=== PATIENT | male | born 1955 | race Caucasian/White ===

== ENCOUNTER 2018-05-04 12:08 | Inpatient (IN) | payer MEDICAID ==
[2018-05-04 14:48] LABS: ADD MAN DIFF? NO
[2018-05-04 14:51] LABS: BASOPHILS % 0.3 % (0.0-2.0); EOSINOPHILS # 0.1 10^3/ul (0.0-0.5); EOSINOPHILS % 0.7 % (0.0-7.0); HEMATOCRIT 38.3 % (42.0-52.0); HEMOGLOBIN 11.9 g/dl (14.0-18.0); LYMPHOCYTES # 1.6 10^3/ul (0.8-2.9); LYMPHOCYTES % 13.3 % (15.0-51.0); MEAN CORPUSCULAR HEMOGLOBIN 22.8 pg (29.0-33.0); MEAN CORPUSCULAR HGB CONC 31.1 g/dl (32.0-37.0); MEAN CORPUSCULAR VOLUME 73.4 fl (82.0-101.0); MEAN PLATELET VOLUME 9.4 fl (7.4-10.4); MONOCYTE # 0.8 10^3/ul (0.3-0.9); MONOCYTES % 6.5 % (0.0-11.0); NEUTROPHIL # 9.6 10^3/ul (1.6-7.5); PLATELET COUNT 352 10^3/UL (140-415); RED BLOOD COUNT 5.22 10^6/ul (4.70-6.10); RED CELL DISTRIBUTION WIDTH 15.9 % (11.5-14.5)
[2018-05-04 14:51] LABS: WHITE BLOOD COUNT 12.2 10^3/ul (4.8-10.8)
[2018-05-04 15:00] LABS: INR 0.93; PROTIME 12.6 Sec (11.9-14.9)
[2018-05-04 15:01] LABS: PARTIAL THROMBOPLASTIN TIME 27.7 Sec (23.0-35.0)
[2018-05-04 15:02] LABS: ANION GAP 14 (5-13); BLOOD UREA NITROGEN 18 mg/dl (7-20); CALCIUM 9.4 mg/dl (8.4-10.2); CARBON DIOXIDE 24 mmol/L (21-31); CHLORIDE 103 mmol/L (97-110); Estimated GFR > 60 mL/min (>60); GLUCOSE 149 mg/dl (70-220); POTASSIUM 4.6 mmol/L (3.5-5.1); SODIUM 141 mmol/L (135-144)
[2018-05-04 15:54] LABS: ERYTHROCYTE SEDIMENTATION RATE 33 mm/Hr (0-20)
[2018-05-04] MEDS ORDERED: VANCOMYCIN IV PER PHARMACY XX (18:30)
[2018-05-04] MEDS ORDERED: NACL 0.9% 3 ML SYG IV (18:30)
[2018-05-04] MEDS ORDERED: morphine 2 MG INJ IV (18:30)
[2018-05-04] MEDS ORDERED: ZOLPIDEM 5 MG TAB PO (18:30)
[2018-05-04 19:40] LABS: C-REACTIVE PROTEIN 14.3 mg/dl (0.0-0.9)
[2018-05-04] MEDS ORDERED: GLUCOSE GEL 15 GRAM TUBE BUCCAL (20:00)
[2018-05-04] MEDS ORDERED: GLUCOSE GEL 15 GRAM TUBE PO ×2 (20:00)
[2018-05-04] MEDS ORDERED: GLUCAGON 1 MG INJ IM (20:00)
[2018-05-04] MEDS ORDERED: DEXTROSE 50% 50 ML SYRINGE IV ×2 (20:00)
[2018-05-04] MEDS: INSULIN ASPART [NOVOLOG] 3 ML PEN SC (21:00)
[2018-05-04] MEDS: VANCOMYCIN HCL 1.5 GM in SOD CHLORIDE 0.9% 250 ML IVPB (22:56)
[2018-05-05] MEDS: ACCU-CHEK XX (02:00)
[2018-05-05 05:23] LABS: ADD MAN DIFF? NO
[2018-05-05 05:27] LABS: BASOPHILS % 0.4 % (0.0-2.0); EOSINOPHILS # 0.2 10^3/ul (0.0-0.5); EOSINOPHILS % 1.8 % (0.0-7.0); HEMATOCRIT 36.9 % (42.0-52.0); HEMOGLOBIN 11.3 g/dl (14.0-18.0); LYMPHOCYTES # 1.3 10^3/ul (0.8-2.9); LYMPHOCYTES % 16.1 % (15.0-51.0); MEAN CORPUSCULAR HEMOGLOBIN 22.6 pg (29.0-33.0); MEAN CORPUSCULAR HGB CONC 30.6 g/dl (32.0-37.0); MEAN CORPUSCULAR VOLUME 73.9 fl (82.0-101.0); MONOCYTE # 0.6 10^3/ul (0.3-0.9); MONOCYTES % 7.1 % (0.0-11.0); NEUTROPHIL # 6.1 10^3/ul (1.6-7.5); NEUTROPHILS % 74.4 % (39.0-77.0); PLATELET COUNT 343 10^3/UL (140-415); RED BLOOD COUNT 4.99 10^6/ul (4.70-6.10); RED CELL DISTRIBUTION WIDTH 15.9 % (11.5-14.5)
[2018-05-05 05:27] LABS: WHITE BLOOD COUNT 8.2 10^3/ul (4.8-10.8)
[2018-05-05 05:35] LABS: HEMOGLOBIN A1C 6.6 % (0-5.9)
[2018-05-05] MEDS: PIPER-TAZO 3.375 GM IV (PMX) 100 ML IVPB ×4 (05:35→17:40)
[2018-05-05 05:44] LABS: ANION GAP 11 (5-13); BLOOD UREA NITROGEN 15 mg/dl (7-20); CALCIUM 9.2 mg/dl (8.4-10.2); CARBON DIOXIDE 24 mmol/L (21-31); CHLORIDE 106 mmol/L (97-110); CREATININE 0.96 mg/dl (0.61-1.24); Estimated GFR > 60 mL/min (>60); GLUCOSE 137 mg/dl (70-220); PHOSPHORUS 3.3 mg/dl (2.5-4.9); POTASSIUM 4.8 mmol/L (3.5-5.1); SODIUM 141 mmol/L (135-144)
[2018-05-05] MEDS: INSULIN ASPART [NOVOLOG] 3 ML PEN SC ×4 (08:00→20:41)
[2018-05-05] MEDS: VANCOMYCIN 1 GM 250 ML IVPB ×2 (08:18→20:31)
[2018-05-05] MEDS: SODIUM HYPOCHLORITE (1/40) 1 APPLIC BTL IRR (08:18)
[2018-05-05] MEDS: ACETAMINOPHEN 325 MG TAB PO (13:00)
[2018-05-05 16:42] LABS: C-REACTIVE PROTEIN 6.8 mg/dl (0.0-0.9)
[2018-05-05 17:31] LABS: ERYTHROCYTE SEDIMENTATION RATE 33 mm/Hr (0-20)
[2018-05-05] MEDS: HYDROCODONE/APAP (5/325) TAB PO (20:31)
[2018-05-06] MEDS: PIPER-TAZO 3.375 GM IV (PMX) 100 ML IVPB ×4 (00:22→19:51)
[2018-05-06] MEDS: INSULIN ASPART [NOVOLOG] 3 ML PEN SC ×3 (00:58→09:00)
[2018-05-06] MEDS: ACCU-CHEK XX (02:00)
[2018-05-06] MEDS: HYDROCODONE/APAP (5/325) TAB PO ×2 (02:05→20:10)
[2018-05-06 09:17] LABS: VANCOMYCIN,TROUGH 8.8 ug/ml (10.0-20.0)
[2018-05-06] MEDS: SODIUM HYPOCHLORITE (1/40) 1 APPLIC BTL IRR (09:40)
[2018-05-06] MEDS: VANCOMYCIN 1 GM 250 ML IVPB (09:40)
[2018-05-06] MEDS ORDERED: IODIXANOL LOCM 100 ML BTL (12:08)
[2018-05-06] MEDS ORDERED: LIDOCAINE 1% (MDV) 20 ML INJ (12:08)
[2018-05-06] MEDS ORDERED: HEPARIN 1000 UNITS/NS (A-LINE) 1,000 ML (12:08)
[2018-05-06] MEDS ORDERED: MIDAZOLAM 1 MG/ML 2 ML INJ (12:09)
[2018-05-06] MEDS ORDERED: FENTAnyl 50 MCG/ML VIAL (12:09)
[2018-05-06] MEDS: Insulin NOVOLOG SS MILD Algorithm (SS with meals and bedtime) SC ×2 (17:30→21:00)
[2018-05-06] MEDS ORDERED: INSULIN ASPART [NOVOLOG] 3 ML PEN SC (17:35)
[2018-05-06] MEDS: VANCOMYCIN HCL 1.5 GM in SOD CHLORIDE 0.9% 250 ML IVPB (21:09)
[2018-05-07] MEDS: PIPER-TAZO 3.375 GM IV (PMX) 100 ML IVPB ×5 (00:08→23:56)
[2018-05-07] MEDS: INSULIN ASPART [NOVOLOG] 3 ML PEN SC ×6 (01:12→20:33)
[2018-05-07] MEDS: morphine SULFATE/PF (2 MG/2 ML) SYG IV (03:11)
[2018-05-07 06:52] LABS: CREATININE 1.18 mg/dl (0.61-1.24)
[2018-05-07 06:52] LABS: BLOOD UREA NITROGEN 20 mg/dl (7-20)
[2018-05-07] MEDS: SODIUM HYPOCHLORITE (1/40) 1 APPLIC BTL IRR (08:59)
[2018-05-07] MEDS: VANCOMYCIN HCL 1.5 GM in SOD CHLORIDE 0.9% 250 ML IVPB ×2 (08:59→20:59)
[2018-05-07] MEDS: HYDROCODONE/APAP (5/325) TAB PO (14:30)
[2018-05-07] MEDS: ACETAMINOPHEN 325 MG TAB PO (20:33)
[2018-05-08] MEDS: INSULIN ASPART [NOVOLOG] 3 ML PEN SC ×4 (01:17→13:00)
[2018-05-08] MEDS: ACETAMINOPHEN 1000MG/100ML IV 100 ML IVPB (03:24)
[2018-05-08] MEDS: PIPER-TAZO 3.375 GM IV (PMX) 100 ML IVPB ×4 (05:19→23:44)
[2018-05-08 08:58] LABS: VANCOMYCIN,TROUGH 14.1 ug/ml (10.0-20.0)
[2018-05-08] MEDS: SODIUM HYPOCHLORITE (1/40) 1 APPLIC BTL IRR (09:00)
[2018-05-08] MEDS: VANCOMYCIN HCL 1.5 GM in SOD CHLORIDE 0.9% 250 ML IVPB ×2 (09:55→20:41)
[2018-05-08] MEDS: HYDROCODONE/APAP (5/325) TAB PO ×3 (15:47→23:47)
[2018-05-08] MEDS ORDERED: INSULIN ASPART [NOVOLOG] 3 ML PEN SC (17:35)
[2018-05-08] MEDS: Insulin NOVOLOG SS MILD Algorithm (SS with meals and bedtime) SC ×2 (17:45→20:41)
[2018-05-08] MEDS: GUAIFENESIN 20 MG/ML 5ML CUP PO (22:18)
[2018-05-09 05:13] LABS: ADD MAN DIFF? NO
[2018-05-09 05:18] LABS: BASOPHILS % 0.3 % (0.0-2.0); EOSINOPHILS # 0.2 10^3/ul (0.0-0.5); EOSINOPHILS % 2.3 % (0.0-7.0); HEMATOCRIT 40.7 % (42.0-52.0); HEMOGLOBIN 12.6 g/dl (14.0-18.0); LYMPHOCYTES # 1.2 10^3/ul (0.8-2.9); LYMPHOCYTES % 16.1 % (15.0-51.0); MEAN CORPUSCULAR HEMOGLOBIN 22.5 pg (29.0-33.0); MEAN CORPUSCULAR VOLUME 72.8 fl (82.0-101.0); MEAN PLATELET VOLUME 9.5 fl (7.4-10.4); MONOCYTE # 0.6 10^3/ul (0.3-0.9); MONOCYTES % 7.7 % (0.0-11.0); NEUTROPHIL # 5.4 10^3/ul (1.6-7.5); NEUTROPHILS % 73.2 % (39.0-77.0); PLATELET COUNT 307 10^3/UL (140-415); RED BLOOD COUNT 5.59 10^6/ul (4.70-6.10); RED CELL DISTRIBUTION WIDTH 15.9 % (11.5-14.5)
[2018-05-09 05:18] LABS: WHITE BLOOD COUNT 7.4 10^3/ul (4.8-10.8)
[2018-05-09] MEDS: PIPER-TAZO 3.375 GM IV (PMX) 100 ML IVPB ×2 (05:30→12:58)
[2018-05-09 05:41] LABS: ANION GAP 10 (5-13); BLOOD UREA NITROGEN 20 mg/dl (7-20); CALCIUM 8.8 mg/dl (8.4-10.2); CARBON DIOXIDE 24 mmol/L (21-31); CHLORIDE 101 mmol/L (97-110); CREATININE 1.05 mg/dl (0.61-1.24); Estimated GFR > 60 mL/min (>60); GLUCOSE 130 mg/dl (70-220); POTASSIUM 4.6 mmol/L (3.5-5.1); SODIUM 135 mmol/L (135-144)
[2018-05-09] MEDS: Insulin NOVOLOG SS MILD Algorithm (SS with meals and bedtime) SC ×4 (08:35→21:00)
[2018-05-09] MEDS: SODIUM HYPOCHLORITE (1/40) 1 APPLIC BTL IRR (08:35)
[2018-05-09] MEDS: VANCOMYCIN HCL 1.5 GM in SOD CHLORIDE 0.9% 250 ML IVPB ×2 (09:08→21:18)
[2018-05-09] MEDS: TRIMETHOPRIM/SULFAMETHOX (DS) TAB PO ×2 (14:30→21:18)
[2018-05-10] MEDS: ACETAMINOPHEN 325 MG TAB PO (03:21)
[2018-05-10] MEDS: Insulin NOVOLOG SS MILD Algorithm (SS with meals and bedtime) SC ×4 (07:30→21:00)
[2018-05-10] MEDS: VANCOMYCIN HCL 1.5 GM in SOD CHLORIDE 0.9% 250 ML IVPB ×2 (08:05→21:01)
[2018-05-10] MEDS: SODIUM HYPOCHLORITE (1/40) 1 APPLIC BTL IRR (08:06)
[2018-05-10] MEDS: TRIMETHOPRIM/SULFAMETHOX (DS) TAB PO ×2 (08:06→21:00)
[2018-05-11] MEDS: Insulin NOVOLOG SS MILD Algorithm (SS with meals and bedtime) SC ×4 (07:30→20:42)
[2018-05-11] MEDS: TRIMETHOPRIM/SULFAMETHOX (DS) TAB PO ×2 (08:08→20:42)
[2018-05-11] MEDS: SODIUM HYPOCHLORITE (1/40) 1 APPLIC BTL IRR (08:08)
[2018-05-11 08:52] LABS: CREATININE 1.21 mg/dl (0.61-1.24)
[2018-05-11 08:52] LABS: BLOOD UREA NITROGEN 24 mg/dl (7-20)
[2018-05-11 08:58] LABS: VANCOMYCIN,TROUGH 16.3 ug/ml (10.0-20.0)
[2018-05-11] MEDS: VANCOMYCIN HCL 1.5 GM in SOD CHLORIDE 0.9% 250 ML IVPB ×2 (09:20→21:10)
[2018-05-12] MEDS: INSULIN ASPART [NOVOLOG] 3 ML PEN SC ×6 (01:59→21:00)
[2018-05-12 07:46] LABS: BLOOD UREA NITROGEN 28 mg/dl (7-20)
[2018-05-12] MEDS: VANCOMYCIN HCL 1.5 GM in SOD CHLORIDE 0.9% 250 ML IVPB (08:53)
[2018-05-12] MEDS: SODIUM HYPOCHLORITE (1/40) 1 APPLIC BTL IRR (08:53)
[2018-05-12] MEDS: TRIMETHOPRIM/SULFAMETHOX (DS) TAB PO (08:53)
[2018-05-12] MEDS: DEXTROSE 5%-0.45% NACL 1,000 ML IV (10:57)
[2018-05-12] MEDS: CEFTRIAXONE 1 GM/50 ML (PMX) 50 ML IVPB (12:21)
[2018-05-12] MEDS ORDERED: ETOMIDATE 20 MG INJ (16:34)
[2018-05-12] MEDS ORDERED: LIDOCAINE 1% (MDV) 20 ML INJ (16:34)
[2018-05-12] MEDS: LIDOCAINE 1% (MPF) 30 ML INJ (17:01)
[2018-05-12] MEDS ORDERED: HYDROmorphONE 1 MG/5 ML IV SYRINGE IV ×3 (17:45→18:00)
[2018-05-12] MEDS: ONDANSETRON 4 MG INJ IV (17:49)
[2018-05-12] MEDS: HYDROmorphONE 1 MG/5 ML IV SYRINGE IV (17:49)
[2018-05-12] MEDS ORDERED: ONDANSETRON 4 MG INJ IV (18:00)
[2018-05-12] MEDS: DOCUSATE SODIUM 100 MG CAP PO (23:00)
[2018-05-12] MEDS: HYDROCODONE/APAP (5/325) TAB PO (23:00)
[2018-05-13] MEDS: ACCU-CHEK XX ×2 (02:00)
[2018-05-13 06:04] LABS: ADD MAN DIFF? NO; BASOPHILS % 0.2 % (0.0-2.0); EOSINOPHILS # 0.2 10^3/ul (0.0-0.5); HEMATOCRIT 39.2 % (42.0-52.0); HEMOGLOBIN 12.1 g/dl (14.0-18.0); LYMPHOCYTES # 1.3 10^3/ul (0.8-2.9); LYMPHOCYTES % 12.3 % (15.0-51.0); MEAN CORPUSCULAR HEMOGLOBIN 22.4 pg (29.0-33.0); MEAN CORPUSCULAR HGB CONC 30.9 g/dl (32.0-37.0); MEAN CORPUSCULAR VOLUME 72.6 fl (82.0-101.0); MEAN PLATELET VOLUME 9.6 fl (7.4-10.4); MONOCYTE # 0.6 10^3/ul (0.3-0.9); MONOCYTES % 5.4 % (0.0-11.0); NEUTROPHIL # 8.3 10^3/ul (1.6-7.5); NEUTROPHILS % 79.7 % (39.0-77.0); PLATELET COUNT 318 10^3/UL (140-415); RED CELL DISTRIBUTION WIDTH 15.4 % (11.5-14.5)
[2018-05-13 06:04] LABS: WHITE BLOOD COUNT 10.4 10^3/ul (4.8-10.8)
[2018-05-13] MEDS: LEVOFLOXACIN 500 MG TAB PO (06:29)
[2018-05-13] MEDS: HYDROCODONE/APAP (5/325) TAB PO (06:29)
[2018-05-13 06:37] LABS: ALBUMIN 3.7 g/dl (3.3-4.9); ANION GAP 11 (5-13); BLOOD UREA NITROGEN 26 mg/dl (7-20); CALCIUM 9.2 mg/dl (8.4-10.2); CARBON DIOXIDE 23 mmol/L (21-31); CHLORIDE 104 mmol/L (97-110); CREATININE 1.19 mg/dl (0.61-1.24); GLUCOSE 132 mg/dl (70-220); PHOSPHORUS 3.9 mg/dl (2.5-4.9); SODIUM 138 mmol/L (135-144)
[2018-05-13] MEDS: INSULIN ASPART [NOVOLOG] 3 ML PEN SC ×4 (08:00→20:27)
[2018-05-13] MEDS: SODIUM HYPOCHLORITE (1/40) 1 APPLIC BTL IRR (08:07)
[2018-05-13] MEDS: CEFTRIAXONE 1 GM/50 ML (PMX) 50 ML IVPB (12:00)
[2018-05-14] MEDS: ACCU-CHEK XX (02:00)
[2018-05-14 05:50] LABS: ADD MAN DIFF? NO
[2018-05-14] MEDS: LEVOFLOXACIN 500 MG TAB PO (05:52)
[2018-05-14 06:14] LABS: BASOPHILS % 0.3 % (0.0-2.0); EOSINOPHILS # 0.3 10^3/ul (0.0-0.5); EOSINOPHILS % 2.8 % (0.0-7.0); HEMATOCRIT 40.4 % (42.0-52.0); HEMOGLOBIN 12.7 g/dl (14.0-18.0); LYMPHOCYTES # 1.8 10^3/ul (0.8-2.9); LYMPHOCYTES % 19.6 % (15.0-51.0); MEAN CORPUSCULAR HEMOGLOBIN 22.7 pg (29.0-33.0); MEAN CORPUSCULAR HGB CONC 31.4 g/dl (32.0-37.0); MEAN CORPUSCULAR VOLUME 72.1 fl (82.0-101.0); MEAN PLATELET VOLUME 9.7 fl (7.4-10.4); MONOCYTE # 0.6 10^3/ul (0.3-0.9); MONOCYTES % 7.1 % (0.0-11.0); NEUTROPHIL # 6.3 10^3/ul (1.6-7.5); NEUTROPHILS % 69.6 % (39.0-77.0); PLATELET COUNT 348 10^3/UL (140-415); RED CELL DISTRIBUTION WIDTH 15.6 % (11.5-14.5)
[2018-05-14 06:39] LABS: ALBUMIN 3.9 g/dl (3.3-4.9); ANION GAP 12 (5-13); BLOOD UREA NITROGEN 26 mg/dl (7-20); CALCIUM 9.6 mg/dl (8.4-10.2); CARBON DIOXIDE 24 mmol/L (21-31); CHLORIDE 103 mmol/L (97-110); CREATININE 1.17 mg/dl (0.61-1.24); GLUCOSE 162 mg/dl (70-220); MAGNESIUM 2.1 mg/dl (1.7-2.5); PHOSPHORUS 3.6 mg/dl (2.5-4.9); SODIUM 139 mmol/L (135-144)
[2018-05-14 06:50] LABS: POTASSIUM 4.8 mmol/L (3.5-5.1)
[2018-05-14] MEDS: INSULIN ASPART [NOVOLOG] 3 ML PEN SC ×4 (08:00→20:23)
[2018-05-14] MEDS: SODIUM HYPOCHLORITE (1/40) 1 APPLIC BTL IRR (08:02)
[2018-05-14] MEDS: CEFTRIAXONE 1 GM/50 ML (PMX) 50 ML IVPB (12:28)
[2018-05-14] MEDS: morphine LIQ (10 MG/5 ML) CUP PO (23:22)
[2018-05-15] MEDS: ACCU-CHEK XX (02:00)
[2018-05-15 06:15] LABS: ALBUMIN 3.7 g/dl (3.3-4.9); ANION GAP 13 (5-13); BLOOD UREA NITROGEN 27 mg/dl (7-20); CALCIUM 9.8 mg/dl (8.4-10.2); CARBON DIOXIDE 24 mmol/L (21-31); CHLORIDE 103 mmol/L (97-110); CREATININE 1.04 mg/dl (0.61-1.24); GLUCOSE 153 mg/dl (70-220); PHOSPHORUS 3.8 mg/dl (2.5-4.9); POTASSIUM 4.5 mmol/L (3.5-5.1); SODIUM 140 mmol/L (135-144)
[2018-05-15] MEDS: INSULIN ASPART [NOVOLOG] 3 ML PEN SC ×3 (07:52→17:38)
[2018-05-15] MEDS: morphine LIQ (10 MG/5 ML) CUP PO ×2 (07:58→14:57)
[2018-05-15] MEDS: SODIUM HYPOCHLORITE (1/40) 1 APPLIC BTL IRR (09:09)
== END 2018-05-15 20:55 | disposition home health service (06) | DRG 239 ==
LOC: FTE 12:08 → PP2 15:59
PROVIDERS: Internal Medicine
PROC: 0Y6M0ZC Detachment at Right Foot, Partial 3rd Ray, Open Approach (ICD-10-PCS; principal; 2018-05-06 12:00)
PROC: B410YZZ Fluoroscopy of Abdominal Aorta using Other Contrast (ICD-10-PCS; 2018-05-06 12:00)
PROC: B41FYZZ Fluoroscopy of Right Lower Extremity Arteries using Other Contrast (ICD-10-PCS; 2018-05-06 12:00)
DX: E11.52 Type 2 diabetes mellitus with diabetic peripheral angiopathy with gangrene (principal); N17.0 Acute kidney failure with tubular necrosis; L03.115 Cellulitis of right lower limb; L02.611 Cutaneous abscess of right foot; R65.10 Systemic inflammatory response syndrome (SIRS) of non-infectious origin without acute organ dysfunction; M86.171 Other acute osteomyelitis, right ankle and foot; E11.69 Type 2 diabetes mellitus with other specified complication; E11.42 Type 2 diabetes mellitus with diabetic polyneuropathy; I10 Essential (primary) hypertension; E78.5 Hyperlipidemia, unspecified; F17.210 Nicotine dependence, cigarettes, uncomplicated; B95.1 Streptococcus, group B, as the cause of diseases classified elsewhere; Z89.411 Acquired absence of right great toe; L97.519 Non-pressure chronic ulcer of other part of right foot with unspecified severity
CPT/HCPCS: 36246; 36415; 71045; 73630; 73718; 75630; 75716; 80048; 80069; 80202; 82565; 82962; 83036; 83735; 84100; 84520; 85025; 85610; 85651; 85730; 86140; 87070; 87075; 87102; 88304; 88311; 90686; 93005; 93922; 97162; 99285-25

== ENCOUNTER 2018-05-26 10:17 | Emergency (ER) | payer MEDICAID ==
[2018-05-26] MEDS: HYDROCODONE/APAP (10/325) TAB PO (11:18)
== END 2018-05-26 13:08 | disposition home or self-care (01) ==
LOC: E/R 10:17
DX: M79.671 Pain in right foot (principal); E11.9 Type 2 diabetes mellitus without complications; Z48.01 Encounter for change or removal of surgical wound dressing; Z79.84 Long term (current) use of oral hypoglycemic drugs
CPT/HCPCS: 73630; 99283-25

== ENCOUNTER 2018-06-02 11:24 | Inpatient (IN) | payer MEDICAID ==
[2018-06-02 12:23] LABS: ADD MAN DIFF? NO
[2018-06-02 12:28] LABS: WHITE BLOOD COUNT 8.1 10^3/ul (4.8-10.8)
[2018-06-02 12:28] LABS: BASOPHILS % 0.5 % (0.0-2.0); EOSINOPHILS # 0.3 10^3/ul (0.0-0.5); EOSINOPHILS % 3.1 % (0.0-7.0); HEMATOCRIT 37.2 % (42.0-52.0); HEMOGLOBIN 11.4 g/dl (14.0-18.0); LYMPHOCYTES # 1.7 10^3/ul (0.8-2.9); LYMPHOCYTES % 20.7 % (15.0-51.0); MEAN CORPUSCULAR HEMOGLOBIN 22.4 pg (29.0-33.0); MEAN CORPUSCULAR HGB CONC 30.6 g/dl (32.0-37.0); MEAN CORPUSCULAR VOLUME 72.9 fl (82.0-101.0); MEAN PLATELET VOLUME 10.1 fl (7.4-10.4); MONOCYTE # 0.6 10^3/ul (0.3-0.9); MONOCYTES % 7.9 % (0.0-11.0); NEUTROPHIL # 5.3 10^3/ul (1.6-7.5); NEUTROPHILS % 66.1 % (39.0-77.0); PLATELET COUNT 294 10^3/UL (140-415); RED CELL DISTRIBUTION WIDTH 15.3 % (11.5-14.5)
[2018-06-02] MEDS: PIPER-TAZO 3.375 GM IV (PMX) 100 ML IVPB (12:41)
[2018-06-02 12:45] LABS: INR 0.81; PROTIME 11.3 Sec (11.9-14.9); PT RATIO 0.9
[2018-06-02 12:48] LABS: ANION GAP 11 (5-13); BLOOD UREA NITROGEN 28 mg/dl (7-20); CARBON DIOXIDE 25 mmol/L (21-31); CHLORIDE 102 mmol/L (97-110); CREATININE 1.08 mg/dl (0.61-1.24); GLUCOSE 342 mg/dl (70-220); POTASSIUM 4.9 mmol/L (3.5-5.1); SODIUM 138 mmol/L (135-144)
[2018-06-02 12:49] LABS: C-REACTIVE PROTEIN 1.4 mg/dl (0.0-0.9); CALCIUM 9.4 mg/dl (8.4-10.2); Estimated GFR > 60 mL/min (>60)
[2018-06-02] MEDS: VANCOMYCIN 1 GM (PMX) 250 ML IVPB (13:12)
[2018-06-02] MEDS ORDERED: GLUCOSE GEL 15 GRAM TUBE BUCCAL (15:00)
[2018-06-02] MEDS ORDERED: GLUCAGON 1 MG INJ IM (15:00)
[2018-06-02] MEDS ORDERED: DEXTROSE 50% 50 ML SYRINGE IV ×2 (15:00)
[2018-06-02] MEDS ORDERED: GLUCOSE GEL 15 GRAM TUBE PO ×2 (15:00)
[2018-06-02] MEDS: INSULIN ASPART [NOVOLOG] 3 ML PEN SC ×3 (17:37→20:16)
[2018-06-02] MEDS: HEPARIN 5,000 UNIT/1 ML VIAL SC (19:44)
[2018-06-02] MEDS: INSULIN GLARGINE [LANTus] (100 UNITS/ML) SYG SC (20:19)
[2018-06-02] MEDS: HYDROCODONE/APAP (5/325) TAB PO (20:37)
[2018-06-02] MEDS: NACL 0.9% 3 ML SYG IV (20:39)
[2018-06-02] MEDS: SOD CHLORIDE 0.45% 1,000 ML IV (23:50)
[2018-06-03 05:59] LABS: ADD MAN DIFF? NO
[2018-06-03 06:03] LABS: BASOPHIL # 0.1 10^3/ul (0.0-0.1); BASOPHILS % 0.7 % (0.0-2.0); EOSINOPHILS # 0.3 10^3/ul (0.0-0.5); EOSINOPHILS % 4.2 % (0.0-7.0); HEMATOCRIT 35.9 % (42.0-52.0); LYMPHOCYTES # 1.5 10^3/ul (0.8-2.9); LYMPHOCYTES % 20.5 % (15.0-51.0); MEAN CORPUSCULAR HEMOGLOBIN 22.2 pg (29.0-33.0); MEAN CORPUSCULAR HGB CONC 30.6 g/dl (32.0-37.0); MEAN CORPUSCULAR VOLUME 72.4 fl (82.0-101.0); MONOCYTE # 0.5 10^3/ul (0.3-0.9); MONOCYTES % 6.6 % (0.0-11.0); NEUTROPHIL # 4.8 10^3/ul (1.6-7.5); NEUTROPHILS % 67.2 % (39.0-77.0); PLATELET COUNT 291 10^3/UL (140-415); RED BLOOD COUNT 4.96 10^6/ul (4.70-6.10); RED CELL DISTRIBUTION WIDTH 15.8 % (11.5-14.5)
[2018-06-03 06:03] LABS: WHITE BLOOD COUNT 7.1 10^3/ul (4.8-10.8)
[2018-06-03 07:04] LABS: ALANINE AMINOTRANSFERASE 28 IU/L (13-69); ALBUMIN 3.3 g/dl (3.3-4.9); ALBUMIN/GLOBULIN RATIO 0.97; ALKALINE PHOSPHATASE 98 IU/L (42-121); ANION GAP 6 (5-13); ASPARTATE AMINO TRANSFERASE 23 IU/L (15-46); BLOOD UREA NITROGEN 25 mg/dl (7-20); CALCIUM 9.2 mg/dl (8.4-10.2); CARBON DIOXIDE 29 mmol/L (21-31); CHLORIDE 102 mmol/L (97-110); CREATININE 1.04 mg/dl (0.61-1.24); Estimated GFR > 60 mL/min (>60); GLUCOSE 160 mg/dl (70-220); POTASSIUM 4.6 mmol/L (3.5-5.1); SODIUM 137 mmol/L (135-144); TOTAL PROTEIN 6.7 g/dl (6.1-8.1)
[2018-06-03 07:27] LABS: HEMOGLOBIN A1C 5.7 % (0-5.9)
[2018-06-03] MEDS ORDERED: FENTAnyl 50 MCG/ML VIAL (07:39)
[2018-06-03] MEDS ORDERED: MIDAZOLAM 1 MG/ML 2 ML INJ (07:40)
[2018-06-03] MEDS: INSULIN ASPART [NOVOLOG] 3 ML PEN SC ×7 (08:00→20:08)
[2018-06-03] MEDS: POLYMYXIN/BACITRACIN 1L IRRIG (08:02)
[2018-06-03] MEDS ORDERED: CEFAZOLIN 1 GM INJ (08:19)
[2018-06-03] MEDS ORDERED: ONDANSETRON 4 MG INJ (08:19)
[2018-06-03] MEDS ORDERED: LIDOCAINE 2% (SDV) 5 ML INJ (08:19)
[2018-06-03] MEDS ORDERED: ETOMIDATE 20 MG INJ (08:19)
[2018-06-03] MEDS ORDERED: LABETALOL HCL 20MG INJ IV (08:30)
[2018-06-03] MEDS ORDERED: METOCLOPRAMIDE 10 MG INJ IV (08:30)
[2018-06-03] MEDS ORDERED: ONDANSETRON 4 MG INJ IV (08:30)
[2018-06-03] MEDS ORDERED: FENTAnyl 50 MCG/ML VIAL IV (08:30)
[2018-06-03] MEDS ORDERED: DIPHENHYDRAMINE 50 MG INJ IV (08:30)
[2018-06-03] MEDS ORDERED: MEPERIDINE 25 MG INJ IV (08:30)
[2018-06-03] MEDS ORDERED: HYDROmorphONE 1 MG/5 ML IV SYRINGE IV ×2 (08:30)
[2018-06-03] MEDS ORDERED: hydrALAzine 20 MG INJ IV (08:30)
[2018-06-03] MEDS ORDERED: hydrALAzine 20 MG INJ (08:48)
[2018-06-03] MEDS: HEPARIN 5,000 UNIT/1 ML VIAL SC ×2 (09:34→20:13)
[2018-06-03] MEDS: HYDROCODONE/APAP (5/325) TAB PO ×2 (10:49→21:36)
[2018-06-03] MEDS: SOD CHLORIDE 0.45% 1,000 ML IV ×2 (11:04→19:28)
[2018-06-03] MEDS: CEFTRIAXONE 2 GM/50 ML (PMX) 50 ML IVPB (14:16)
[2018-06-03] MEDS: TRIMETHOPRIM/SULFAMETHOXAZOLE 15 ML in DEXTROSE 5% 500 ML IVPB ×2 (15:05→21:36)
[2018-06-03] MEDS: INSULIN GLARGINE [LANTus] (100 UNITS/ML) SYG SC (20:13)
[2018-06-04] MEDS: TRIMETHOPRIM/SULFAMETHOXAZOLE 15 ML in DEXTROSE 5% 500 ML IVPB ×3 (05:32→22:18)
[2018-06-04 06:34] LABS: BLOOD UREA NITROGEN 21 mg/dl (7-20)
[2018-06-04 06:34] LABS: CREATININE 1.16 mg/dl (0.61-1.24)
[2018-06-04] MEDS: HEPARIN 5,000 UNIT/1 ML VIAL SC ×2 (08:07→20:37)
[2018-06-04] MEDS: INSULIN ASPART [NOVOLOG] 3 ML PEN SC ×7 (08:07→20:44)
[2018-06-04] MEDS: LIDOCAINE 1% (MPF) 5 ML VIAL SC ×2 (12:00→12:30)
[2018-06-04] MEDS: CEFTRIAXONE 2 GM/50 ML (PMX) 50 ML IVPB (14:17)
[2018-06-04] MEDS: SOD CHLORIDE 0.45% 1,000 ML IV ×2 (15:30→23:44)
[2018-06-04] MEDS: HYDROCODONE/APAP (5/325) TAB PO (20:38)
[2018-06-04] MEDS: INSULIN GLARGINE [LANTus] (100 UNITS/ML) SYG SC (20:44)
[2018-06-05] MEDS: TRIMETHOPRIM/SULFAMETHOXAZOLE 15 ML in DEXTROSE 5% 500 ML IVPB (06:13)
[2018-06-05 06:21] LABS: ADD MAN DIFF? NO
[2018-06-05 06:25] LABS: BASOPHILS % 0.6 % (0.0-2.0); EOSINOPHILS # 0.2 10^3/ul (0.0-0.5); EOSINOPHILS % 3.5 % (0.0-7.0); HEMATOCRIT 38.1 % (42.0-52.0); HEMOGLOBIN 11.9 g/dl (14.0-18.0); LYMPHOCYTES # 1.8 10^3/ul (0.8-2.9); LYMPHOCYTES % 27.8 % (15.0-51.0); MEAN CORPUSCULAR HEMOGLOBIN 22.5 pg (29.0-33.0); MEAN CORPUSCULAR HGB CONC 31.2 g/dl (32.0-37.0); MEAN PLATELET VOLUME 9.9 fl (7.4-10.4); MONOCYTE # 0.5 10^3/ul (0.3-0.9); MONOCYTES % 8.3 % (0.0-11.0); NEUTROPHIL # 3.9 10^3/ul (1.6-7.5); PLATELET COUNT 300 10^3/UL (140-415); RED BLOOD COUNT 5.29 10^6/ul (4.70-6.10)
[2018-06-05 06:25] LABS: WHITE BLOOD COUNT 6.5 10^3/ul (4.8-10.8)
[2018-06-05 06:58] LABS: INR 0.89; PROTIME 12.1 Sec (11.9-14.9); PT RATIO 0.9
[2018-06-05 07:01] LABS: ALANINE AMINOTRANSFERASE 20 IU/L (13-69); ALBUMIN 3.6 g/dl (3.3-4.9); ALBUMIN/GLOBULIN RATIO 0.97; ALKALINE PHOSPHATASE 109 IU/L (42-121); ANION GAP 8 (5-13); ASPARTATE AMINO TRANSFERASE 25 IU/L (15-46); BLOOD UREA NITROGEN 20 mg/dl (7-20); CALCIUM 9.6 mg/dl (8.4-10.2); CARBON DIOXIDE 25 mmol/L (21-31); CHLORIDE 102 mmol/L (97-110); Estimated GFR 56 mL/min (>60); GLUCOSE 157 mg/dl (70-220); SODIUM 135 mmol/L (135-144); TOTAL PROTEIN 7.3 g/dl (6.1-8.1)
[2018-06-05 07:20] LABS: PARTIAL THROMBOPLASTIN TIME 27.4 Sec (23.0-35.0)
[2018-06-05] MEDS: INSULIN ASPART [NOVOLOG] 3 ML PEN SC ×4 (08:15→13:04)
[2018-06-05] MEDS: HEPARIN 5,000 UNIT/1 ML VIAL SC (08:16)
[2018-06-05] MEDS: SOD CHLORIDE 0.45% 1,000 ML IV (11:30)
[2018-06-05] MEDS: CEFTRIAXONE 2 GM/50 ML (PMX) 50 ML IVPB (13:03)
== END 2018-06-05 16:30 | disposition home health service (06) | DRG 629 ==
LOC: 2NE 14:27 → E/R 11:24 → 2NE 14:27
PROC: 0QBN0ZZ Excision of Right Metatarsal, Open Approach (ICD-10-PCS; principal; 2018-06-03 07:30)
PROC: 0YQM0ZZ Repair Right Foot, Open Approach (ICD-10-PCS; 2018-06-03 07:30)
PROC: 0LBV0ZZ Excision of Right Foot Tendon, Open Approach (ICD-10-PCS; 2018-06-03 07:30)
PROC: 02HV33Z Insertion of Infusion Device into Superior Vena Cava, Percutaneous Approach (ICD-10-PCS; 2018-06-03 07:31)
DX: E11.69 Type 2 diabetes mellitus with other specified complication (principal); L03.115 Cellulitis of right lower limb; M86.9 Osteomyelitis, unspecified; E11.621 Type 2 diabetes mellitus with foot ulcer; E11.42 Type 2 diabetes mellitus with diabetic polyneuropathy; L97.519 Non-pressure chronic ulcer of other part of right foot with unspecified severity; E11.65 Type 2 diabetes mellitus with hyperglycemia; E11.51 Type 2 diabetes mellitus with diabetic peripheral angiopathy without gangrene; E78.5 Hyperlipidemia, unspecified; Z89.411 Acquired absence of right great toe; Z89.421 Acquired absence of other right toe(s); Z91.14 Patient's other noncompliance with medication regimen
CPT/HCPCS: 36415; 36569; 71045; 73718; 76937; 80048; 80053; 82565; 82962; 83036; 83735; 84520; 85025; 85610; 85651; 85730; 86140; 87040; 87070; 88304; 88311; 99285-25

== ENCOUNTER 2018-06-08 10:32 | Emergency (ER) | payer MEDICAID ==
[2018-06-08] MEDS: ENOXAPARIN 80 MG/0.8 ML SYG SC (13:11)
== END 2018-06-08 14:53 | disposition home or self-care (01) ==
LOC: E/R 10:32
DX: I82.611 Acute embolism and thrombosis of superficial veins of right upper extremity (principal)
CPT/HCPCS: 93971; 96372; 99285-25

== ENCOUNTER 2018-06-22 09:08 | Emergency (ER) | payer MEDICAID | END 2018-06-22 10:01 | disposition home or self-care (01) | LOC: E/R 09:08 | DX: Z45.2 Encounter for adjustment and management of vascular access device (principal); E11.9 Type 2 diabetes mellitus without complications | CPT/HCPCS: 99282; Z7502 ==

== ENCOUNTER 2018-12-23 10:51 | Inpatient (IN) | payer MEDICAID ==
[2018-12-23 12:40] LABS: ADD MAN DIFF? NO
[2018-12-23 12:41] LABS: BASOPHILS % 0.6 % (0.0-2.0); EOSINOPHILS # 0.1 10^3/ul (0.0-0.5); EOSINOPHILS % 2.2 % (0.0-7.0); HEMATOCRIT 35.9 % (42.0-52.0); HEMOGLOBIN 11.2 g/dl (14.0-18.0); LYMPHOCYTES # 1.8 10^3/ul (0.8-2.9); LYMPHOCYTES % 32.5 % (15.0-51.0); MEAN CORPUSCULAR HGB CONC 31.2 g/dl (32.0-37.0); MEAN CORPUSCULAR VOLUME 73.7 fl (82.0-101.0); MEAN PLATELET VOLUME 9.8 fl (7.4-10.4); MONOCYTE # 0.3 10^3/ul (0.3-0.9); MONOCYTES % 4.8 % (0.0-11.0); NEUTROPHIL # 3.2 10^3/ul (1.6-7.5); NEUTROPHILS % 59.5 % (39.0-77.0); PLATELET COUNT 202 10^3/UL (140-415); RED BLOOD COUNT 4.87 10^6/ul (4.70-6.10); RED CELL DISTRIBUTION WIDTH 16.2 % (11.5-14.5)
[2018-12-23 12:41] LABS: WHITE BLOOD COUNT 5.4 10^3/ul (4.8-10.8)
[2018-12-23] MEDS: SOD CHLORIDE 0.9% IV (12:49)
[2018-12-23 13:04] LABS: ANION GAP 8 (5-13); BLOOD UREA NITROGEN 10 mg/dl (7-20); CALCIUM 8.4 mg/dl (8.4-10.2); CARBON DIOXIDE 25 mmol/L (21-31); CHLORIDE 107 mmol/L (97-110); CREATININE 1.06 mg/dl (0.61-1.24); Estimated GFR > 60 mL/min (>60); GLUCOSE 116 mg/dl (70-220); MAGNESIUM 2.1 mg/dl (1.7-2.5); PHOSPHORUS 3.1 mg/dl (2.5-4.9); POTASSIUM 3.9 mmol/L (3.5-5.1); SODIUM 140 mmol/L (135-144)
[2018-12-23 13:20] LABS: INR 0.93; PROTIME 12.6 Sec (11.9-14.9)
[2018-12-23] MEDS: CEFEPIME 2GM/50 ML (PMX) 50 ML IVPB (13:53)
[2018-12-23] MEDS: IBUPROFEN 800 MG TAB PO (13:53)
[2018-12-23] MEDS ORDERED: ACETAMINOPHEN 325 MG TAB PO (14:00)
[2018-12-23] MEDS ORDERED: ONDANSETRON 4 MG INJ IV ×2 (14:00→15:30)
[2018-12-23] MEDS: APIXABAN 5 MG TABLET PO ×2 (14:04→20:50)
[2018-12-23 14:15] LABS: C-REACTIVE PROTEIN 0.5 mg/dl (0.0-0.9)
[2018-12-23] MEDS: VANCOMYCIN 1 GM (PMX) 250 ML IVPB (14:23)
[2018-12-23 14:54] LABS: ERYTHROCYTE SEDIMENTATION RATE 5 mm/Hr (0-20)
[2018-12-23] MEDS ORDERED: GLUCAGON 1 MG INJ IM (15:30)
[2018-12-23] MEDS ORDERED: DEXTROSE 50% 50 ML SYRINGE IV ×2 (15:30)
[2018-12-23] MEDS ORDERED: GLUCOSE GEL 15 GRAM TUBE PO ×2 (15:30)
[2018-12-23] MEDS ORDERED: NACL 0.9% 3 ML SYG IV (15:30)
[2018-12-23] MEDS ORDERED: GLUCOSE GEL 15 GRAM TUBE BUCCAL (15:30)
[2018-12-23] MEDS ORDERED: VANCOMYCIN IV PER PHARMACY XX (16:00)
[2018-12-23 16:28] LABS: HEMOGLOBIN A1C 7.4 % (0-5.9)
[2018-12-23] MEDS: VANCOMYCIN 750 MG (PMX) 250 ML IVPB (17:18)
[2018-12-23] MEDS: HYDROCODONE/APAP (5/325) TAB PO (17:20)
[2018-12-23] MEDS: INSULIN ASPART [NOVOLOG] 3 ML PEN SC ×2 (17:37→20:45)
[2018-12-23] MEDS: CEFEPIME 1GM/50 ML (PMX) 50 ML IVPB (20:49)
[2018-12-23] MEDS: ATORVASTATIN 20 MG TAB PO (20:49)
[2018-12-23] MEDS: hydrALAzine 20 MG INJ IV (20:51)
[2018-12-23] MEDS: ACETAMINOPHEN 325 MG TAB PO (20:56)
[2018-12-24] MEDS: VANCOMYCIN 1.5 GM/NS 250 ML 250 ML IVPB ×2 (05:44→17:46)
[2018-12-24] MEDS: HYDROCODONE/APAP (5/325) TAB PO ×2 (06:04→23:03)
[2018-12-24 07:16] LABS: ADD MAN DIFF? NO
[2018-12-24 07:22] LABS: BASOPHILS % 0.6 % (0.0-2.0); EOSINOPHILS # 0.1 10^3/ul (0.0-0.5); HEMATOCRIT 44.9 % (42.0-52.0); HEMOGLOBIN 13.4 g/dl (14.0-18.0); LYMPHOCYTES # 1.2 10^3/ul (0.8-2.9); LYMPHOCYTES % 16.4 % (15.0-51.0); MEAN CORPUSCULAR HEMOGLOBIN 22.5 pg (29.0-33.0); MEAN CORPUSCULAR HGB CONC 29.8 g/dl (32.0-37.0); MEAN CORPUSCULAR VOLUME 75.3 fl (82.0-101.0); MEAN PLATELET VOLUME 10.4 fl (7.4-10.4); MONOCYTE # 0.5 10^3/ul (0.3-0.9); MONOCYTES % 7.5 % (0.0-11.0); NEUTROPHIL # 5.1 10^3/ul (1.6-7.5); NEUTROPHILS % 73.2 % (39.0-77.0); PLATELET COUNT 234 10^3/UL (140-415); RED BLOOD COUNT 5.96 10^6/ul (4.70-6.10); RED CELL DISTRIBUTION WIDTH 17.8 % (11.5-14.5)
[2018-12-24 07:39] LABS: PHOSPHORUS 2.9 mg/dl (2.5-4.9)
[2018-12-24 07:39] LABS: CHOL/HDL RATIO 2.9 RATIO; CHOLESTEROL 169 mg/dl (100-200); HDL CHOLESTEROL 57 mg/dl (30-78); LDL CHOLESTEROL,CALCULATED 85 mg/dl; TRIGLYCERIDES 135 mg/dl (0-149)
[2018-12-24] MEDS: INSULIN ASPART [NOVOLOG] 3 ML PEN SC ×4 (07:55→20:24)
[2018-12-24] MEDS: CEFEPIME 1GM/50 ML (PMX) 50 ML IVPB ×2 (09:11→21:34)
[2018-12-24] MEDS: APIXABAN 5 MG TABLET PO ×2 (09:11→20:21)
[2018-12-24 12:28] LABS: ANION GAP 5 (5-13); BLOOD UREA NITROGEN 14 mg/dl (7-20); CALCIUM 9.1 mg/dl (8.4-10.2); CARBON DIOXIDE 27 mmol/L (21-31); CHLORIDE 103 mmol/L (97-110); CREATININE 0.95 mg/dl (0.61-1.24); Estimated GFR > 60 mL/min (>60); GLUCOSE 142 mg/dl (70-220); POTASSIUM 4.2 mmol/L (3.5-5.1); SODIUM 135 mmol/L (135-144)
[2018-12-24] MEDS: NEOMYC/POLYMYX/BACIT 30 GM OINT TOP (16:09)
[2018-12-24] MEDS: INSULIN GLARGINE [LANTus] (100 UNITS/ML) SYG SC (20:20)
[2018-12-24] MEDS: ATORVASTATIN 20 MG TAB PO (20:21)
[2018-12-25] MEDS: VANCOMYCIN 1.5 GM/NS 250 ML 250 ML IVPB ×2 (05:39→18:25)
[2018-12-25 06:04] LABS: ADD MAN DIFF? NO
[2018-12-25 06:05] LABS: BASOPHILS % 0.4 % (0.0-2.0); EOSINOPHILS # 0.2 10^3/ul (0.0-0.5); HEMATOCRIT 41.4 % (42.0-52.0); HEMOGLOBIN 12.7 g/dl (14.0-18.0); LYMPHOCYTES # 1.2 10^3/ul (0.8-2.9); LYMPHOCYTES % 21.1 % (15.0-51.0); MEAN CORPUSCULAR HGB CONC 30.7 g/dl (32.0-37.0); MEAN PLATELET VOLUME 10.1 fl (7.4-10.4); MONOCYTE # 0.5 10^3/ul (0.3-0.9); NEUTROPHIL # 3.8 10^3/ul (1.6-7.5); NEUTROPHILS % 67.3 % (39.0-77.0); PLATELET COUNT 207 10^3/UL (140-415); RED BLOOD COUNT 5.52 10^6/ul (4.70-6.10); RED CELL DISTRIBUTION WIDTH 15.9 % (11.5-14.5)
[2018-12-25 06:05] LABS: WHITE BLOOD COUNT 5.7 10^3/ul (4.8-10.8)
[2018-12-25 06:33] LABS: MAGNESIUM 1.9 mg/dl (1.7-2.5)
[2018-12-25 06:33] LABS: PHOSPHORUS 3.8 mg/dl (2.5-4.9)
[2018-12-25 06:40] LABS: ANION GAP 6 (5-13); BLOOD UREA NITROGEN 13 mg/dl (7-20); CALCIUM 9.4 mg/dl (8.4-10.2); CARBON DIOXIDE 29 mmol/L (21-31); CHLORIDE 102 mmol/L (97-110); CREATININE 1.07 mg/dl (0.61-1.24); Estimated GFR > 60 mL/min (>60); GLUCOSE 124 mg/dl (70-220); POTASSIUM 4.1 mmol/L (3.5-5.1); SODIUM 137 mmol/L (135-144)
[2018-12-25] MEDS: INSULIN ASPART [NOVOLOG] 3 ML PEN SC ×4 (08:00→21:00)
[2018-12-25] MEDS: APIXABAN 5 MG TABLET PO ×2 (08:23→21:36)
[2018-12-25] MEDS: CHOLECALCIFEROL 2,000 UNIT CAP PO (08:23)
[2018-12-25] MEDS: LISINOPRIL 5 MG TAB PO (08:23)
[2018-12-25] MEDS: CEFEPIME 1GM/50 ML (PMX) 50 ML IVPB ×2 (08:30→21:35)
[2018-12-25] MEDS: NEOMYC/POLYMYX/BACIT 30 GM OINT TOP (11:21)
[2018-12-25 16:54] LABS: VANCOMYCIN,TROUGH 16.3 ug/ml (10.0-20.0)
[2018-12-25] MEDS: ATORVASTATIN 20 MG TAB PO (21:36)
[2018-12-25] MEDS: INSULIN GLARGINE [LANTus] (100 UNITS/ML) SYG SC (21:36)
[2018-12-26] MEDS: VANCOMYCIN 1.5 GM/NS 250 ML 250 ML IVPB ×2 (06:03→17:09)
[2018-12-26] MEDS: ACETAMINOPHEN 325 MG TAB PO (06:10)
[2018-12-26 07:16] LABS: ADD MAN DIFF? NO
[2018-12-26 07:23] LABS: BASOPHILS % 0.3 % (0.0-2.0); EOSINOPHILS # 0.2 10^3/ul (0.0-0.5); HEMATOCRIT 42.5 % (42.0-52.0); HEMOGLOBIN 12.9 g/dl (14.0-18.0); LYMPHOCYTES # 1.3 10^3/ul (0.8-2.9); LYMPHOCYTES % 21.4 % (15.0-51.0); MEAN CORPUSCULAR HGB CONC 30.4 g/dl (32.0-37.0); MEAN CORPUSCULAR VOLUME 75.6 fl (82.0-101.0); MEAN PLATELET VOLUME 10.4 fl (7.4-10.4); MONOCYTE # 0.5 10^3/ul (0.3-0.9); PLATELET COUNT 206 10^3/UL (140-415); RED BLOOD COUNT 5.62 10^6/ul (4.70-6.10); RED CELL DISTRIBUTION WIDTH 16.2 % (11.5-14.5)
[2018-12-26 07:50] LABS: ANION GAP 6 (5-13); BLOOD UREA NITROGEN 18 mg/dl (7-20); CALCIUM 9.6 mg/dl (8.4-10.2); CARBON DIOXIDE 28 mmol/L (21-31); CHLORIDE 103 mmol/L (97-110); CREATININE 1.11 mg/dl (0.61-1.24); Estimated GFR > 60 mL/min (>60); GLUCOSE 122 mg/dl (70-220); POTASSIUM 4.8 mmol/L (3.5-5.1); SODIUM 137 mmol/L (135-144)
[2018-12-26] MEDS: INSULIN ASPART [NOVOLOG] 3 ML PEN SC ×4 (08:00→20:26)
[2018-12-26 08:12] LABS: PHOSPHORUS 3.8 mg/dl (2.5-4.9)
[2018-12-26 08:12] LABS: MAGNESIUM 1.8 mg/dl (1.7-2.5)
[2018-12-26] MEDS: CEFEPIME 1GM/50 ML (PMX) 50 ML IVPB ×2 (08:36→20:19)
[2018-12-26] MEDS: NEOMYC/POLYMYX/BACIT 30 GM OINT TOP (08:36)
[2018-12-26] MEDS: APIXABAN 5 MG TABLET PO ×2 (08:36→20:18)
[2018-12-26] MEDS: CHOLECALCIFEROL 2,000 UNIT CAP PO (08:36)
[2018-12-26] MEDS: LISINOPRIL 5 MG TAB PO (08:37)
[2018-12-26] MEDS ORDERED: GABAPENTIN 100 MG CAP (19:58)
[2018-12-26] MEDS: ATORVASTATIN 20 MG TAB PO (20:18)
[2018-12-26] MEDS: INSULIN GLARGINE [LANTus] (100 UNITS/ML) SYG SC (20:22)
[2018-12-27] MEDS: VANCOMYCIN 1.5 GM/NS 250 ML 250 ML IVPB ×2 (05:16→17:00)
[2018-12-27] MEDS: INSULIN ASPART [NOVOLOG] 3 ML PEN SC ×4 (07:50→20:34)
[2018-12-27] MEDS: LISINOPRIL 5 MG TAB PO (09:32)
[2018-12-27] MEDS: CHOLECALCIFEROL 2,000 UNIT CAP PO (09:33)
[2018-12-27] MEDS: CEFEPIME 1GM/50 ML (PMX) 50 ML IVPB ×2 (09:33→20:34)
[2018-12-27] MEDS: NEOMYC/POLYMYX/BACIT 30 GM OINT TOP (09:33)
[2018-12-27] MEDS: APIXABAN 5 MG TABLET PO ×2 (09:33→20:33)
[2018-12-27] MEDS: INSULIN GLARGINE [LANTus] (100 UNITS/ML) SYG SC (20:32)
[2018-12-27] MEDS: ATORVASTATIN 20 MG TAB PO (20:34)
[2018-12-28 05:55] LABS: BLOOD UREA NITROGEN 25 mg/dl (7-20)
[2018-12-28 05:55] LABS: CREATININE 1.11 mg/dl (0.61-1.24)
[2018-12-28] MEDS: VANCOMYCIN 1.5 GM/NS 250 ML 250 ML IVPB (06:00)
[2018-12-28 06:23] LABS: VANCOMYCIN,TROUGH 20.3 ug/ml (10.0-20.0)
[2018-12-28] MEDS: INSULIN ASPART [NOVOLOG] 3 ML PEN SC ×3 (07:53→17:19)
[2018-12-28] MEDS: CHOLECALCIFEROL 2,000 UNIT CAP PO (08:18)
[2018-12-28] MEDS: APIXABAN 5 MG TABLET PO (08:18)
[2018-12-28] MEDS: LISINOPRIL 5 MG TAB PO (08:22)
[2018-12-28] MEDS: CEFEPIME 1GM/50 ML (PMX) 50 ML IVPB (08:22)
[2018-12-28] MEDS: NEOMYC/POLYMYX/BACIT 30 GM OINT TOP (08:51)
[2018-12-28] MEDS: VANCOMYCIN 1 GM 250 ML IVPB (11:08)
[2018-12-30] MEDS ORDERED: APIXABAN 5 MG TABLET PO (09:00)
== END 2018-12-28 19:00 | disposition home or self-care (01) | DRG 629 ==
LOC: E/R 10:51 → PP2 13:49
PROC: 0QBQ0ZZ Excision of Right Toe Phalanx, Open Approach (ICD-10-PCS; principal; 2018-12-23)
DX: E11.69 Type 2 diabetes mellitus with other specified complication (principal); M86.171 Other acute osteomyelitis, right ankle and foot; M86.671 Other chronic osteomyelitis, right ankle and foot; L03.115 Cellulitis of right lower limb; I82.411 Acute embolism and thrombosis of right femoral vein; E11.42 Type 2 diabetes mellitus with diabetic polyneuropathy; E11.621 Type 2 diabetes mellitus with foot ulcer; E11.51 Type 2 diabetes mellitus with diabetic peripheral angiopathy without gangrene; I10 Essential (primary) hypertension; E78.5 Hyperlipidemia, unspecified; F17.200 Nicotine dependence, unspecified, uncomplicated; B95.8 Unspecified staphylococcus as the cause of diseases classified elsewhere; Z79.4 Long term (current) use of insulin; Z79.02 Long term (current) use of antithrombotics/antiplatelets; Z91.19 Patient's noncompliance with other medical treatment and regimen; Z91.14 Patient's other noncompliance with medication regimen; Z89.411 Acquired absence of right great toe; Z89.421 Acquired absence of other right toe(s)
CPT/HCPCS: 36415; 70450; 73630; 73718; 80048; 80061; 80202; 82306; 82565; 82652; 82962; 83036; 83735; 84100; 84520; 85025; 85610; 85651; 85730; 86140; 87040-91; 87070; 87081; 93922; 93971; 99285-25